=== PATIENT | female | born 2000 | race Caucasian/White ===

== ENCOUNTER 2020-06-18 07:10 | Emergency (ER) | payer OTHER ==
[~2020-06-18] VITALS: Ht 160 cm; Wt 61.4 kg
[2020-06-18 07:20] VITALS: TEMP 98.7
[2020-06-18] MEDS ORDERED: NORCO 325 MG-51 TAB PO (08:01)
[2020-06-18 08:09] VITALS: BP 121/61; PULSE 62
== END 2020-06-18 08:10 | disposition home or self-care (01) ==
LOC: COL.ER 07:10
DX: K61.0 Anal abscess (principal); Z88.1 Allergy status to other antibiotic agents; Z87.891 Personal history of nicotine dependence

== ENCOUNTER 2020-06-19 14:11 | Emergency (ER) | payer OTHER ==
[~2020-06-19] VITALS: Ht 160 cm; Wt 61.4 kg
[~2020-06-19 14:11] MED LIST: NORCO 325 MG-51 TAB PO
[2020-06-19 15:53] VITALS: BP 124/68; PULSE 74; TEMP 97.8
== END 2020-06-19 15:55 | disposition home or self-care (01) ==
LOC: COL.ER 14:11
DX: K61.0 Anal abscess (principal); Z87.891 Personal history of nicotine dependence; Z88.1 Allergy status to other antibiotic agents; Z79.1 Long term (current) use of non-steroidal anti-inflammatories (NSAID)